=== PATIENT | male | born 1980 | race Caucasian/White ===

== ENCOUNTER 2018-09-04 06:12 | Day surgery (SDC) | payer OTHER ==
[~2018-09-04] VITALS: Ht 165.1 cm; Wt 126.4 kg
[~2018-09-04 06:12] MED LIST: SODIUM CHLORIDE 0.9% 1,000 ML IV ONE
[2018-09-04] MEDS ORDERED: ALBUTEROL SULFATE 2.5 MG/0.5 ML NEB SOLUTION NEB ONE (06:13)
[2018-09-04] MEDS ORDERED: BENZOCAINE 20% 50 MCG/SPRAY 57 GM TP ONE (06:13)
[2018-09-04] MEDS ORDERED: LIDOCAINE 2% 30 ML JELLY TP ONE (06:13)
[2018-09-04] MEDS ORDERED: LIDOCAINE 4% 50 ML SOLUTION TP ONE (06:13)
[2018-09-04] MEDS: SODIUM CHLORIDE 0.9% 1,000 ML IV ONE (07:22)
[2018-09-04] MEDS ORDERED: MIDAZOLAM HCL 2 MG/2 ML VIAL ONE (07:56)
[2018-09-04] MEDS ORDERED: FentaNYL CITRATE-PF 100 MCG/2 ML VIAL ONE (07:56)
[2018-09-04] MEDS ORDERED: MethylPREDNISolone SOD SUCC 125 MG/2 ML VIAL ONE (08:54)
[2018-09-04] MEDS: MethylPREDNISolone SOD SUCC 125 MG/2 ML VIAL IVP ONE (08:56)
[2018-09-04] MEDS ORDERED: MONT10TA21 PO (09:50)
[2018-09-04] MEDS ORDERED: ATEN50TA PO (09:51)
[2018-09-04] MEDS ORDERED: BECL10.62 IH (09:51)
[2018-09-04] MEDS ORDERED: RAMI5CAP67 PO (09:51)
[2018-09-04] MEDS ORDERED: OXYGEN THERAPY IH SCH (20:00)
== END 2018-09-04 10:25 | disposition home or self-care (01) ==
LOC: SURGERY 06:12
PROVIDERS: ATTEND Internal Medicine Critical Care Medicine
DX: J38.4 Edema of larynx (principal); F41.9 Anxiety disorder, unspecified; E80.0 Hereditary erythropoietic porphyria; K21.9 Gastro-esophageal reflux disease without esophagitis; Z72.89 Other problems related to lifestyle; Z91.09 Other allergy status, other than to drugs and biological substances
CPT/HCPCS: 31623; 31624; 87015; 87070; 87101; 87205; 87206; 87220; 88108; J2250; J2930; J3010; J7030